=== PATIENT | female | born 1985 | race Caucasian/White ===

== ENCOUNTER 2019-06-16 13:21 | Outpatient (CLI) | payer MEDICAID ==
[2019-06-17] MEDS ORDERED: NO HOME MEDS (15:44)
== END 2019-06-16 23:59 | disposition home or self-care (01) ==
LOC: RAD 13:21
PROVIDERS: ATTEND Obstetrics & Gynecology
DX: D06.9 Carcinoma in situ of cervix, unspecified (principal); N85.2 Hypertrophy of uterus; F17.200 Nicotine dependence, unspecified, uncomplicated
CPT/HCPCS: 76830; 76856

== ENCOUNTER 2019-06-19 09:06 | Day surgery (SDC) | payer MEDICAID ==
[2019-06-17 16:43] LABS: CLARITY,URINE SLIGHTLY CLOUDY (Clear); COLOR,URINE YELLOW (Yellow); GLUCOSE, URINE NEGATIVE (Neg); KETONES,URINE NEGATIVE (Neg); LEUKOCYTE ESTERASE ,URINE NEGATIVE (Neg); NITRITES, URINE NEGATIVE (Neg); OCCULT BLOOD,URINE TRACE-LYSED (Neg); PH,URINE 5.5 (4.8-8.0); PROTEIN,URINE NEGATIVE (Neg); UROBILINOGEN,URINE 0.2 E.U/dL (0.2-1.0)
[2019-06-17 16:46] LABS: BASOPHILS % (AUTO) 0.1 % (0-1); EOSINOPHILS # (AUTO) 0.1 X10'3 (0-0.9); EOSINOPHILS % (AUTO) 0.9 % (0-6); LYMPHOCYTES # (AUTO) 3.3 X10'3 (1.1-4.8); LYMPHOCYTES % (AUTO) 31.8 % (21-51); MEAN CORPUSCULAR HEMOGLOBIN 30.7 PG (27.0-31.0); MEAN CORPUSCULAR HGB CONC 34.2 g/dL (33.0-36.5); MEAN CORPUSCULAR VOLUME 89.9 FL (78-98); MEAN PLATELET VOLUME 9.5 FL (7.4-10.4); MONOCYTES # (AUTO) 0.8 X10'3 (0-0.9); MONOCYTES % (AUTO) 7.5 % (2-12); NEUTROPHILS # (AUTO) 6.2 X10'3 (1.8-7.7); NEUTROPHILS % (AUTO) 59.7 % (42-75); PRE OP HEMOGLOBIN 15.7 g/dL (12.0-16.0); PRE OP PLATELET COUNT 265 X10'3 (140-440); RED BLOOD COUNT 5.12 X10'6 (4.20-5.60)
[2019-06-17 16:49] LABS: UA COLLECTION TYPE CLN CATCH MIDSTREAM
[2019-06-17 16:51] LABS: PRE OP INR 0.9 INR; PRE OP PROTIME 9.9 SECONDS (9.0-12.0)
[2019-06-17 16:54] LABS: ALBUMIN 3.8 G/DL (3.4-5.0); ALBUMIN/GLOBULIN RATIO 0.9 (1.1-1.5); ALKALINE PHOSPHATASE 68 IU/L (46-116); BLOOD UREA NITROGEN 7 MG/DL (7-18); BUN/CREATININE RATIO 6.2 (6.6-38.0); CALCIUM 8.7 MG/DL (8.5-10.1); CHLORIDE 103 MMOL/L (99-107); CREATININE 1.13 MG/DL (0.40-0.90); PRE OP ALT 16 U/L (30-65); PRE OP ANION GAP 13 (8-16); PRE OP AST 12 U/L (10-37); PRE OP BILIRUB, TOTAL 0.3 MG/DL (0.0-1.0); PRE OP GLUCOSE 113 MG/DL (70-104); PRE OP POTASSIUM 3.6 MMOL/L (3.4-5.1); PRE OP SODIUM 136 MMOL/L (135-145); TOTAL CARBON DIOXIDE 20.1 MMOL/L (24-32); eGFR 55 ML/MIN
[2019-06-17 17:02] LABS: BACTERIA,URINE 1+ /HPF (Neg); MUCUS STRANDS MANY /LPF (Neg); RBC,URINE 0-2 /HPF (0-2); SQUAMOUS EPITHELIAL CELL,UR MANY /LPF (FEW); WBC,URINE 0-4 /HPF (0-4)
[2019-06-17 17:12] LABS: HCG SERUM QL NEGATIVE
[~2019-06-19] VITALS: Ht 170.2 cm; Wt 112.0 kg
[2019-06-19] VITALS (8 sets, daily range): BP systolic 103–121; BP diastolic 60–75
[~2019-06-19 09:06] MED LIST: NO HOME MEDS; ceFOXitin 2 GM ADDvantage bag 100 ML IV ONE; famotidine 20mg tablet PO ONE; ringers solution, lacted 1,000 ML IV SCH
[2019-06-19] MEDS ORDERED: ferric subsulfate solution/paste 1 APPLIC SOL.W.APPL TP ONE (10:39)
[2019-06-19] MEDS ORDERED: albuterol 2.5 MG/3 ML nebule NEB ONE (10:40)
[2019-06-19] MEDS ORDERED: MIDAZolam 5mg/ml 2ml vial IV PRN (10:40)
[2019-06-19] MEDS ORDERED: sevoflurane 250ml liquid IH ONE (11:25)
[2019-06-19] MEDS ORDERED: midazolam 2 mg/2 ml injection ONE (11:32)
[2019-06-19] MEDS ORDERED: fentaNYL/PF 50MCG/1 ML 2ML syringe ONE ×2 (11:32→11:39)
[2019-06-19] MEDS ORDERED: propofol inj 20 ML IV ONE (11:38)
[2019-06-19] MEDS ORDERED: LIDOcaine 2% (20mg/ml) 5ml vial ONE (11:38)
[2019-06-19] MEDS ORDERED: ondansetron/PF 4mg/2ml inj ONE (11:39)
[2019-06-19] MEDS ORDERED: dexamethasone sod phosphate 4mg/ml inj. ONE (11:39)
[2019-06-19] MEDS ORDERED: ringers solution, lacted 1,000 ML IV SCH (11:43)
[2019-06-19] MEDS ORDERED: morphine 4 MG/ML inj SYRINge IV PRN ×2 (11:45)
[2019-06-19] MEDS ORDERED: ondansetron/PF 4mg/2ml inj IV PRN (11:45)
[2019-06-19] MEDS ORDERED: proCHLORperazine 10 MG/2 ml inj IV PRN (11:45)
[2019-06-19] MEDS ORDERED: meperidine/PF 25mg/ml syringe IV PRN ×3 (11:45)
[2019-06-19] MEDS ORDERED: BUPIVAcaine/PF 2.5 mg/ml (0.25%) 30ml vial ONE (11:48)
--- NOTE | 2019-06-19 12:10 | NUR ---
Received from OR via BED , accompanied by Anesthesiologist DR FRITZ and report given by Anesthesiolgist. PATIENT WAKING UP, DENIES, V/S WNL, NEUROVASCULAR CHECKS INTACT, 20G PIV LUE, SCD ON, DEMABONDED TO LAP SIGHTS OF ABDOMEN AND WITH PERIPAD WITH SCANT DRAINAGE CDI.
--- NOTE | 2019-06-19 12:14 | NUR ---
CORRECTION NO DERMABONDED SITES, ONLY PERIPAD
[2019-06-19] MEDS ORDERED: HYDROcodone/acetaminophen 5mg/325mg tablet PO ONE (12:55)
--- NOTE | 2019-06-19 13:10 | NUR ---
PATIENT A&OX4, PATIENT STATES PAIN CONTROLLED AT THIS TIME, V/S WNL, NEUROVASCULAR CHECKS INTACT, 20G PIV LUE D/C WITH NO COMPLICATIONS OBSERVED, SCD OFF, . FRESH CYN PAD GIVEN TO PATIENT.SCRIPT FOR PAIN GIVEN TO PATIENT. I HAVE REVIEWED D/C INSTRUCTIONS WITH PATIENT AND FAMILY AND THEY HAVE VERBALIZED UNDERSTANDING. PATIENT D/C HOME WITH FAMILY TO TRANSPORT AND ALL BELONGINGS..
== END 2019-06-19 13:10 | disposition home or self-care (01) ==
LOC: PAS 09:06
PROVIDERS: ATTEND Obstetrics & Gynecology
DX: R87.613 High grade squamous intraepithelial lesion on cytologic smear of cervix (HGSIL) (principal); F17.200 Nicotine dependence, unspecified, uncomplicated; J45.909 Unspecified asthma, uncomplicated; I10 Essential (primary) hypertension; F32.9 Major depressive disorder, single episode, unspecified; F41.9 Anxiety disorder, unspecified; F43.10 Post-traumatic stress disorder, unspecified; Z86.14 Personal history of Methicillin resistant Staphylococcus aureus infection; Z91.040 Latex allergy status; Z88.8 Allergy status to other drugs, medicaments and biological substances; Z79.899 Other long term (current) drug therapy; Z79.01 Long term (current) use of anticoagulants
CPT/HCPCS: 36415; 57522; 80053; 81001; 82948; 84703; 85025; 85610; 85730; 86885; 86900; 86901; 93005; 94640; C1758; J0694; J1100; J2001; J2175; J2250; J2405; J2704; J3010; J3490; A4618; A7000; J7120

== ENCOUNTER 2019-08-21 16:29 | Emergency (ER) | payer MEDICAID ==
[~2019-08-21] VITALS: Ht 170.2 cm; Wt 112.3 kg
[~2019-08-21 16:29] MED LIST changes: -ceFOXitin 2 GM ADDvantage bag 100 ML IV ONE; -famotidine 20mg tablet PO ONE; -ringers solution, lacted 1,000 ML IV SCH
[2019-08-21 17:33] LABS: BASOPHILS % (AUTO) 0.3 % (0-1); EOSINOPHILS % (AUTO) 0.4 % (0-6); HEMATOCRIT 40.2 % (35.0-45.0); HEMOGLOBIN 13.7 g/dl (12.0-16.0); LYMPHOCYTES # (AUTO) 2.3 X10'3 (1.1-4.8); MEAN CORPUSCULAR HGB CONC 34.1 g/dL (33.0-36.5); MEAN PLATELET VOLUME 8.6 FL (7.4-10.4); MONOCYTES # (AUTO) 0.6 X10'3 (0-0.9); MONOCYTES % (AUTO) 5.3 % (2-12); NEUTROPHILS # (AUTO) 8.7 X10'3 (1.8-7.7); PLATELET COUNT 221 X10'3 (140-440); RED BLOOD COUNT 4.42 X10'6 (4.20-5.60); RED CELL DISTRIBUTION WIDTH 13.6 % (11.5-14.5); WHITE BLOOD COUNT 11.8 X10'3 (4.5-11.0)
[2019-08-21 17:49] LABS: ALANINE AMINOTRANSFERASE 39 U/L (12-78); ALBUMIN 3.7 G/DL (3.4-5.0); ALKALINE PHOSPHATASE 57 IU/L (46-116); ANION GAP 9 (8-16); ASPARTATE AMINO TRANSFERASE 20 U/L (10-37); BILIRUBIN,TOTAL 0.4 MG/DL (0.1-1.0); BLOOD UREA NITROGEN 9 MG/DL (7-18); BUN/CREATININE RATIO 12.5 (6.6-38.0); CHLORIDE 101 MMOL/L (99-107); CREATININE 0.72 MG/DL (0.40-0.90); GLUCOSE 80 MG/DL (70-104); POTASSIUM 3.5 MMOL/L (3.5-5.1); SODIUM 135 MMOL/L (135-145); TOTAL CARBON DIOXIDE 24.7 MMOL/L (24-32); TOTAL PROTEIN 7.5 G/DL (6.4-8.2); eGFR > 90 ML/MIN
[2019-08-21] MEDS ORDERED: dextrose 5%-normal saline 1,000 ML IV ONE (20:34)
[2019-08-21] MEDS ORDERED: metoclopramide 5 mg/ml inj IV ONE (20:35)
[2019-08-21] MEDS ORDERED: normal saline 1000ML IV soln IVB ONE (20:35)
--- NOTE | 2019-08-21 20:35 | NUR ---
discussed pt's emesis w/ edmd zambrano; new order for NS bolus received.
[2019-08-21 21:13] LABS: BETA HCG,QUANTITATIVE 23232 mIU/ml
--- NOTE | 2019-08-21 21:15 | NUR ---
U/S CALLED BACK AT 21:14 BE IN [place]
[2019-08-21 23:09] LABS: URINE HCG POSITIVE (NEG)
[2019-08-21 23:16] LABS: CLARITY,URINE SLIGHTLY CLOUDY (Clear); COLOR,URINE YELLOW (Yellow); GLUCOSE, URINE NEGATIVE (Neg); KETONES,URINE >=80 mg/dl (Neg); LEUKOCYTE ESTERASE ,URINE TRACE (Neg); NITRITES, URINE NEGATIVE (Neg); OCCULT BLOOD,URINE NEGATIVE (Neg); PROTEIN,URINE NEGATIVE (Neg); UROBILINOGEN,URINE 0.2 E.U/dL (0.2-1.0)
[2019-08-21 23:25] LABS: UA COLLECTION TYPE CLN CATCH MIDSTREAM
[2019-08-21 23:26] LABS: BACTERIA,URINE FEW /HPF (Neg); RBC,URINE 0-2 /HPF (0-2); SQUAMOUS EPITHELIAL CELL,UR FEW /LPF (FEW); WBC,URINE NONE SEEN /HPF (0-4)
--- NOTE | 2019-08-21 23:56 | NUR ---
pt states she still feels very nauseous
[2019-08-22] MEDS ORDERED: ringers solution, lacted 1,000 ML IV ONE (00:20)
[2019-08-22] MEDS ORDERED: pyridoxine 50mg tablet PO ONE (00:50)
[2019-08-22 01:20] VITALS: BP 104/54
== END 2019-08-22 01:22 | disposition home or self-care (01) ==
LOC: ER 16:29
DX: O21.8 Other vomiting complicating pregnancy (principal); O26.891 Other specified pregnancy related conditions, first trimester; R10.31 Right lower quadrant pain; R10.32 Left lower quadrant pain; R51 Headache; O99.511 Diseases of the respiratory system complicating pregnancy, first trimester; J45.909 Unspecified asthma, uncomplicated; Z90.49 Acquired absence of other specified parts of digestive tract; Z87.891 Personal history of nicotine dependence; Z88.1 Allergy status to other antibiotic agents; Z88.6 Allergy status to analgesic agent; Z91.040 Latex allergy status; Z88.8 Allergy status to other drugs, medicaments and biological substances; Z3A.11 11 weeks gestation of pregnancy
CPT/HCPCS: 36415; 76801; 80053; 81001; 81025; 84702; 85025; 87088; 96361; 96374; 99284; J2765; J7030; J7042; J7120